=== PATIENT | female | born 1950 | race Caucasian/White ===

== ENCOUNTER → 2023-08-17 11:36 | Outpatient (REF) | payer OTHER, SELFPAY | LOC: WDC 11:36 | PROVIDERS: ATTENDING PHYSICIAN Family Medicine | DX: Z12.31 Encounter for screening mammogram for malignant neoplasm of breast (principal) | CPT/HCPCS: 77063; 77067 ==

== ENCOUNTER → 2023-12-09 06:28 | Day surgery (SDC) | payer OTHER, SELFPAY | LOC: GI 06:28 | PROVIDERS: ATTENDING PHYSICIAN Internal Medicine; FAMILY PHYSICIAN Family Medicine | DX: Z12.11 Encounter for screening for malignant neoplasm of colon (principal); D50.9 Iron deficiency anemia, unspecified; K62.89 Other specified diseases of anus and rectum; K55.21 Angiodysplasia of colon with hemorrhage; K44.9 Diaphragmatic hernia without obstruction or gangrene; K31.7 Polyp of stomach and duodenum; K92.2 Gastrointestinal hemorrhage, unspecified; K62.1 Rectal polyp; D12.8 Benign neoplasm of rectum; K31.89 Other diseases of stomach and duodenum | CPT/HCPCS: 45385; 45382; 43239; 88305; 88342 ==

== ENCOUNTER 2023-12-21 06:17 | Day surgery (SDC) | payer OTHER, SELFPAY ==
[2023-12-21] VITALS (10 sets, daily range): BP systolic 97–166; BP diastolic 58–74; BMI 24.7
[2023-12-21] MEDS: NORMOSOL-R 1000 IV (06:54)
[2023-12-21] MEDS: TYLENOL 1000 MG PO (06:54)
--- NOTE | 2023-12-21 08:44 | W.IMMPOSTOP ---
Surgical Immed Post Op Note
-
Primary Surgeon: Elly
Assisting: Gonzalo HOLDEN
Pre-op Diagnosis: Chronic wound of back
Post-op Diagnosis: Same
Procedure Performed: Excisional biopsy, chronic wound of back (7cm x 4cm x 1cm)
Anesthesia Type: MAC local
Specimen / Cultures: Skin and chronic wound
Estimated Blood Loss: 5cc
Complications: None immediate
Operative Findings: Hypergranulation tissue and scant expressible purulence present prior to procedure; skin excised incorporating apparent ruptured inclusion cyst, generous resection to ensure complete removal
--- NOTE | 2023-12-21 08:46 | OR.RPT ---
Operative Report
Operative Report
Primary Surgeon: Elly
Assisting: Gonzalo HOLDEN
Pre-op Diagnosis: Chronic wound of back
Post-op Diagnosis: Same
Procedure Performed: Excisional biopsy, chronic wound of back (7cm x 4cm x 1cm)
Anesthesia Type: MAC local
Specimen / Cultures: Skin and chronic wound
Estimated Blood Loss: 5cc
Complications: None immediate
Operative Findings: Hypergranulation tissue and scant expressible purulence present prior to procedure; skin excised incorporating apparent ruptured inclusion cyst, generous resection to ensure complete removal
Date of Surgery: 12/21/23
Indications: This 73F developed a chronic draining wound on her back, excisional biopsy was elected.
PROCEDURE: After informed consent was obtained, the patient was brought to the operative suite and placed supine on the operating table. The patient was sedated, prepped and draped in the usual sterile manner and an adequate local anesthetic was
administered using 1% lidocaine with epinephrine.
An incision was made with a #15 blade in full thickness elliptical fashion. The skin was undermined with the bovie and completely excised, and then passed off the table as specimen. Hemostasis was achieved with electrocautery. The wound was then
irrigated with copious sterile saline and hemostasis was assured. The skin was approximated with 3-0 Vicryl deep dermal interrupted sutures and 4-0 monocryl suture in a subcuticular fashion. Topical skin glue was then applied. All surgical counts
were reported as correct.
The patient tolerated the procedure well and was taken to the PACU in stable condition.
The assistance of Gonzalo HOLDEN was required due to the complexity of the procedure. During the procedure he assisted with retraction, resection, and closure of the wound.
== END 2023-12-21 10:03 | disposition home or self-care (01) ==
LOC: SDS 06:17
PROVIDERS: ATTENDING PHYSICIAN Surgery
DX: L82.1 Other seborrheic keratosis (principal); L92.8 Other granulomatous disorders of the skin and subcutaneous tissue
CPT/HCPCS: 11406; 88304

== ENCOUNTER → 2024-09-09 15:02 | Outpatient (REF) | payer OTHER, SELFPAY | LOC: WDC 15:02 | PROVIDERS: ATTENDING PHYSICIAN Family Medicine | DX: Z12.31 Encounter for screening mammogram for malignant neoplasm of breast (principal) | CPT/HCPCS: 77063; 77067 ==

== ENCOUNTER 2024-12-22 06:36 | Day surgery (SDC) | payer OTHER, SELFPAY | END 2024-12-22 12:17 | disposition home or self-care (01) | LOC: CATH 06:36 | PROVIDERS: ATTENDING PHYSICIAN Nuclear Medicine Nuclear Cardiology; FAMILY PHYSICIAN Family Medicine; OTHER PHYSICIAN Internal Medicine Cardiovascular Disease | DX: I08.3 Combined rheumatic disorders of mitral, aortic and tricuspid valves (principal); I48.91 Unspecified atrial fibrillation; E78.00 Pure hypercholesterolemia, unspecified; E11.22 Type 2 diabetes mellitus with diabetic chronic kidney disease; N18.31 Chronic kidney disease, stage 3a; Z79.01 Long term (current) use of anticoagulants | CPT/HCPCS: 93312; 93325; 93320 ==

== ENCOUNTER 2025-02-02 06:49 | Day surgery (SDC) | payer OTHER, SELFPAY ==
[2025-02-02 07:38] VITALS: BMI 22.2
--- NOTE | 2025-02-02 08:31 | ITS.CL.CARDI ---
[employer] - Cardioversion
Cardioversion
Procedure Report:
Date of Procedure: 02/02/25
Procedure: Cardioversion
Indication: Symptomatic atrial fibrillation
Performing Physician: Dylan Massey MD
Technique: The patient was brought to the holding area. Signed informed consent was obtained. A time out was called and performed. The patient was anesthetized by the anesthesia service. Anticoagulation status was reviewed and appropriate. R2 pads
were placed anteriorly and posteriorly. After LICO revealed no ENRICO thrombus, A 200 J synchronized biphasic shock restored normal sinus rhythm without significant bradycardia. There were no complications.
Conclusion: Uncomplicated cardioversion from atrial fibrillation to sinus rhythm.
Recommendation: Routine post cardioversion care. Continue alf anticoagulation.
== END 2025-02-02 09:13 | disposition home or self-care (01) ==
LOC: CATH 06:49
PROVIDERS: ATTENDING PHYSICIAN Nuclear Medicine Nuclear Cardiology; FAMILY PHYSICIAN Family Medicine; OTHER PHYSICIAN Internal Medicine Cardiovascular Disease
DX: I48.91 Unspecified atrial fibrillation (principal); I08.3 Combined rheumatic disorders of mitral, aortic and tricuspid valves; I42.1 Obstructive hypertrophic cardiomyopathy; I12.9 Hypertensive chronic kidney disease with stage 1 through stage 4 chronic kidney disease, or unspecified chronic kidney disease; E11.22 Type 2 diabetes mellitus with diabetic chronic kidney disease; N18.31 Chronic kidney disease, stage 3a; E78.00 Pure hypercholesterolemia, unspecified; Z79.01 Long term (current) use of anticoagulants
CPT/HCPCS: 93312; 93320; 93325; 92960; 93005

== ENCOUNTER → 2025-04-05 12:23 | Outpatient (REF) | payer OTHER, SELFPAY | LOC: RAD 12:23 | PROVIDERS: ATTENDING PHYSICIAN Physician Assistant | DX: M25.561 Pain in right knee (principal); M25.471 Effusion, right ankle | CPT/HCPCS: 73564; 73610 ==